=== PATIENT | male | born 1955 | race Two or more races ===

== ENCOUNTER 2016-09-19 13:00 | Inpatient (IN) | payer OTHER, MEDICAID ==
[~2016-09-19] VITALS: Ht 177.8 cm; Wt 86.2 kg
[2016-09-19] MEDS ORDERED: ONDANSETRON HCL 4 MG/2 ML VIAL IV ONE (13:30)
[2016-09-19] MEDS ORDERED: MORPHINE SULFATE 4 MG/ML SYRG IV ONE (13:30)
[2016-09-19 13:41] LABS: Basophils # (auto) 0 uL; Basophils % (auto) 0.3 % (0.0-2.0); Eosinophils # (auto) 0.3 uL; Eosinophils % (auto) 5.2 % (0.0-7.0); Hematocrit 34.3 % (41.0-53.0); Hemoglobin 11.4 g/dL (13.5-17.5); Lymphocytes # (auto) 1.1 uL; Lymphocytes % (auto) 18.6 % (10.0-50.0); Mean Corpuscular Hemoglobin 32.9 pg (28.0-32.0); Mean Corpuscular Hgb Conc. 33.2 g/dL (32.0-36.0); Mean Corpuscular Volume 99.4 fL (80.0-100.0); Mean Platelet Volume 7.4 fL (7.4-10.4); Monocytes # (auto) 0.7 uL; Monocytes % (auto) 12.6 % (0.0-12.0); Neutrophils # (auto) 3.7 uL; Neutrophils % (auto) 63.3 % (37.0-80.0); Platelet Count (auto) 196 10^3/uL (140-450); Red Cell Distribution Width 15.7 % (11.6-16.0); White Blood Cell 5.9 10^3/uL (4.4-10.8)
[2016-09-19 14:00] LABS: BUN/Creatinine Ratio 3.5; Calcium 8.1 mg/dL (8.5-10.1); Potassium 5.3 mmol/L (3.5-5.1)
[2016-09-19 14:03] LABS: Bilirubin, Total 0.6 mg/dL (0.2-1.0); Total Protein 8.8 g/dL (6.4-8.2)
[2016-09-19 14:12] LABS: B-Type Natriuretic Peptide 1163.25 pg/mL (0-100); Temperature: 21.6 C (20.0-25.0)
[2016-09-19] MEDS ORDERED: ONDANSETRON HCL 4 MG/2 ML VIAL IV PRN (21:45)
[2016-09-19] MEDS ORDERED: ACETAMINOPHEN 325 MG TAB PO PRN (21:45)
[2016-09-19] MEDS ORDERED: DEXTROSE (50%) 50ML SYRG IV PRN (21:45)
[2016-09-19] MEDS ORDERED: DOCUSATE SOD 100 MG CAP PO PRN (21:45)
[2016-09-19] MEDS ORDERED: NITROGLYCERIN 0.4 MG SL TAB SL PRN (21:45)
[2016-09-19] MEDS ORDERED: TEMAZEPAM 15 MG CAP PO PRN (21:45)
[2016-09-19] MEDS ORDERED: MORPHINE SULF INJ 2 MG/ML SYRINGE 1ML IV PRN (21:45)
[2016-09-19] MEDS ORDERED: HYDROcodone-ACET 5/325MG TAB PO PRN (21:45)
[2016-09-19] MEDS ORDERED: ATORVASTATIN 20 MG TAB PO SCH (22:00)
[2016-09-19] MEDS ORDERED: METOPROLOL TARTRATE 25 MG TAB PO SCH (22:00)
[2016-09-19] MEDS: FAMOTIDINE 20 MG TAB PO SCH (22:41)
[2016-09-19 23:44] VITALS: BP 154/96
[2016-09-20] MEDS: ACCU-CHEK COMFORT CURVE STRIP VI SCH ×3 (00:06→12:06)
[2016-09-20] MEDS: InsuLIN REG 1unit/0.01ml Soln (100units/ml) SC SCH ×3 (00:06→12:13)
[2016-09-20 02:23] VITALS: BP 154/96
[2016-09-20 05:00] VITALS: BP 134/74
[2016-09-20 06:19] LABS: Basophils # (auto) 0 uL; Basophils % (auto) 0.6 % (0.0-2.0); Eosinophils # (auto) 0.4 uL; Eosinophils % (auto) 6.6 % (0.0-7.0); Hematocrit 32.6 % (41.0-53.0); Hemoglobin 10.6 g/dL (13.5-17.5); Lymphocytes # (auto) 1.1 uL; Mean Corpuscular Hemoglobin 32.6 pg (28.0-32.0); Mean Corpuscular Hgb Conc. 32.5 g/dL (32.0-36.0); Mean Corpuscular Volume 100.5 fL (80.0-100.0); Mean Platelet Volume 7.4 fL (7.4-10.4); Monocytes # (auto) 0.9 uL; Neutrophils # (auto) 3.8 uL; Neutrophils % (auto) 60.8 % (37.0-80.0); Platelet Count (auto) 194 10^3/uL (140-450); Red Cell Distribution Width 16.1 % (11.6-16.0); White Blood Cell 6.2 10^3/uL (4.4-10.8)
[2016-09-20 06:51] LABS: Albumin 2.8 g/dL (3.4-5.0); BUN/Creatinine Ratio 4.2; Bilirubin, Total 0.6 mg/dL (0.2-1.0); Calcium 8.1 mg/dL (8.5-10.1); Potassium 4.8 mmol/L (3.5-5.1); Total Protein 7.8 g/dL (6.4-8.2)
[2016-09-20 09:00] VITALS: BP 121/72
[2016-09-20] MEDS ORDERED: LISI2.5T47 PO (09:25)
[2016-09-20] MEDS ORDERED: ATO40T PO (09:25)
[2016-09-20] MEDS ORDERED: B-COTAB10 OR (09:25)
[2016-09-20] MEDS ORDERED: TEMA15CA PO (09:25)
[2016-09-20] MEDS ORDERED: METO-159 PO (09:25)
[2016-09-20] MEDS ORDERED: ASP81EC PO (09:25)
[2016-09-20] MEDS ORDERED: FOLI1TAB6 PO (09:25)
[2016-09-20] MEDS ORDERED: OMEP20CA5 PO (09:25)
[2016-09-20] MEDS ORDERED: METO5TAB2 PO (09:25)
[2016-09-20] MEDS ORDERED: INSLANTI SC (09:26)
[2016-09-20] MEDS ORDERED: PATIENTS OWN MEDICATION (Lisinopril 1 TAB) PO SCH (10:00)
[2016-09-20] MEDS ORDERED: ENOXAPARIN SOD 30 MG/0.3 ML SYRINGE SC SCH (10:00)
[2016-09-20] MEDS ORDERED: PATIENTS OWN MEDICATION (Metoprolol Tartrate 100 MG) PO SCH ×2 (10:00)
[2016-09-20] MEDS ORDERED: ASPirin 81 mg TAB PO SCH (10:00)
[2016-09-20] MEDS ORDERED: FOLIC ACID 1 MG TAB PO SCH (10:00)
[2016-09-20] MEDS ORDERED: LISINOPRIL 5 MG TAB PO SCH (10:00)
[2016-09-20] MEDS ORDERED: METOPROLOL TARTRATE 50 MG TAB PO SCH (10:00)
[2016-09-20] MEDS ORDERED: PATIENTS OWN MEDICATION (Folic Acid 1 MG) PO SCH ×2 (10:00)
[2016-09-20] MEDS: FAMOTIDINE 20 MG TAB PO SCH (10:07)
[2016-09-20 10:34] LABS: Prothrombin Time 12.1 sec (9.37-12.3)
[2016-09-20 10:45] LABS: INR 1.17 (0.9-1.15)
[2016-09-20 12:59] VITALS: BP 123/71
[2016-09-20] MEDS ORDERED: ADENOSINE 72 MG in GIVE UN-DILUTED 0 ML IV ONE (13:30)
[2016-09-20 15:17] VITALS: BP 121/72
[2016-09-20] MEDS ORDERED: PATIENTS OWN MEDICATION (Atorvastatin Calcium (Lipitor) 1 TAB) PO SCH ×2 (18:00)
[2016-09-20] MEDS ORDERED: INSULIN DETEMIR(LEVEMIR) 1unit/0.01ml Soln (100units/ml) SC SCH (22:00)
[2016-09-20] MEDS ORDERED: ATORVASTATIN 20 MG TAB PO SCH (22:00)
[2016-09-20] MEDS ORDERED: INSULIN GLARGINE SC SCH (22:00)
== END 2016-09-20 16:15 | disposition home or self-care (01) | DRG 291 ==
LOC: EDSEX 13:00 → EDBD 13:00 → ER 13:05 → TELE 13:06 → TELE-WESTW 23:11
PROVIDERS: ADMIT Internal Medicine; ATTEND Family Medicine
PROC: 0W9G3ZZ Drainage of Peritoneal Cavity, Percutaneous Approach (ICD-10-PCS; principal; 2016-09-20)
DX: I50.31 Acute diastolic (congestive) heart failure (principal); N18.6 End stage renal disease; R18.8 Other ascites; E27.40 Unspecified adrenocortical insufficiency; I13.2 Hypertensive heart and chronic kidney disease with heart failure and with stage 5 chronic kidney disease, or end stage renal disease; E44.0 Moderate protein-calorie malnutrition; R07.89 Other chest pain; E11.22 Type 2 diabetes mellitus with diabetic chronic kidney disease; E11.65 Type 2 diabetes mellitus with hyperglycemia; E87.5 Hyperkalemia; E78.5 Hyperlipidemia, unspecified; D63.8 Anemia in other chronic diseases classified elsewhere; I25.10 Atherosclerotic heart disease of native coronary artery without angina pectoris; R14.0 Abdominal distension (gaseous); Z95.1 Presence of aortocoronary bypass graft; Z99.2 Dependence on renal dialysis; I25.2 Old myocardial infarction; Z90.49 Acquired absence of other specified parts of digestive tract; Z90.89 Acquired absence of other organs; Z68.27 Body mass index [BMI] 27.0-27.9, adult
CPT/HCPCS: 36415; 71010; 76700; 76942; 78452; 80053; 82962; 83036; 83880; 84132; 84484; 85025; 85610; 85730; 87081; 93005; 93017; 93306; 96374; 96375; J0153; J1815; J2405

== ENCOUNTER 2017-01-16 17:09 | Inpatient (IN) | payer OTHER, MEDICAID ==
[~2017-01-16] VITALS: Ht 177.8 cm; Wt 88.5 kg
[~2017-01-16 17:09] MED LIST: ASP81EC PO; ATO40T PO; B-COTAB10 OR; FOLI1TAB6 PO; INSLANTI SC; LISI2.5T47 PO; METO-159 PO; METO5TAB2 PO; OMEP20CA5 PO; TEMA15CA PO
[2017-01-16] MEDS ORDERED: LACTULOSE 20Gm/30ML SOLN PO ONE (17:30)
[2017-01-16] MEDS ORDERED: MORPHINE SULFATE 4 MG/ML SYRG IV ONE (17:30)
[2017-01-16] MEDS ORDERED: SPIRONOLACTONE 25 MG TAB PO ONE (17:30)
[2017-01-16] MEDS ORDERED: FUROSEMIDE 40 MG/4 ML VIAL IV ONE (17:30)
[2017-01-16 18:39] LABS: Basophils # (auto) 0 uL; Basophils % (auto) 0.6 % (0.0-2.0); Eosinophils # (auto) 0.2 uL; Eosinophils % (auto) 3.9 % (0.0-7.0); Hematocrit 35.2 % (41.0-53.0); Hemoglobin 11.7 g/dL (13.5-17.5); Lymphocytes # (auto) 1.2 uL; Lymphocytes % (auto) 18.3 % (10.0-50.0); Mean Corpuscular Hemoglobin 32.6 pg (28.0-32.0); Mean Corpuscular Hgb Conc. 33.2 g/dL (32.0-36.0); Mean Corpuscular Volume 98.4 fL (80.0-100.0); Mean Platelet Volume 7.3 fL (7.4-10.4); Monocytes # (auto) 0.9 uL; Monocytes % (auto) 14.1 % (0.0-12.0); Neutrophils % (auto) 63.1 % (37.0-80.0); Platelet Count (auto) 307 10^3/uL (140-450); Red Cell Distribution Width 13.6 % (11.6-16.0); White Blood Cell 6.3 10^3/uL (4.4-10.8)
[2017-01-16 18:50] LABS: INR 1.06 (0.9-1.15); Partial Thromboplastin Time 30.1 sec (22.64-33.71); Prothrombin Time 11.4 sec (9.37-12.3)
[2017-01-16 19:08] LABS: Albumin 2.5 g/dL (3.4-5.0); BUN/Creatinine Ratio 4.4; Bilirubin, Total 0.4 mg/dL (0.2-1.0); Calcium 8.4 mg/dL (8.5-10.1); Magnesium 2.3 mg/dL (1.6-2.6); Potassium 4.3 mmol/L (3.5-5.1); Total Protein 8.6 g/dL (6.4-8.2)
[2017-01-17] MEDS ORDERED: MORPHINE SULF INJ 2 MG/ML SYRINGE 1ML IV PRN ×2 (00:45)
[2017-01-17] MEDS ORDERED: HYDROcodone-ACET 5/325MG TAB PO PRN (00:45)
[2017-01-17] MEDS ORDERED: NITROGLYCERIN 0.4 MG SL TAB SL PRN (00:45)
[2017-01-17] MEDS ORDERED: DEXTROSE (50%) 50ML SYRG IV PRN (00:45)
[2017-01-17] MEDS ORDERED: ONDANSETRON HCL 4 MG/2 ML VIAL IV PRN (00:45)
[2017-01-17 03:08] VITALS: BP 141/89
[2017-01-17] MEDS: InsuLIN REG 1unit/0.01ml Soln (100units/ml) SC SCH ×3 (04:00→11:53)
[2017-01-17] MEDS: ACCU-CHEK COMFORT CURVE STRIP VI SCH ×3 (04:17→11:53)
[2017-01-17 05:00] VITALS: BP 141/89
[2017-01-17] MEDS ORDERED: SODIUM CHLOR 0.9% PF (SALINE LOCK) 10ML VIAL IV SCH (06:00)
[2017-01-17 08:00] VITALS: BP 123/86
[2017-01-17 09:21] VITALS: BP 123/86
[2017-01-17] MEDS ORDERED: PANTOPRAZOLE 40 MG TAB PO SCH (10:00)
[2017-01-17] MEDS ORDERED: METOPROLOL TARTRATE 50 MG TAB PO SCH (10:00)
[2017-01-17] MEDS ORDERED: METOCLOPRAMIDE HCL 10 MG TAB PO SCH (10:00)
[2017-01-17] MEDS ORDERED: OMEPRAZOLE 20MG/10ML ORAL SUSP PO SCH (10:00)
[2017-01-17] MEDS ORDERED: ASPirin-EC 81 mg tab PO SCH (10:00)
[2017-01-17] MEDS ORDERED: MULTIPLE VITAMIN TAB PO SCH (10:00)
[2017-01-17] MEDS ORDERED: LISINOPRIL 5 MG TAB PO SCH (10:00)
[2017-01-17 10:20] VITALS: BP 123/86
[2017-01-17] MEDS ORDERED: TEMAZEPAM 15 MG CAP PO SCH (22:00)
[2017-01-17] MEDS ORDERED: ATORVASTATIN 20 MG TAB PO SCH (22:00)
== END 2017-01-17 13:22 | disposition home or self-care (01) | DRG 432 ==
LOC: ER 17:11 → TELE 17:12 → TELE-CENTR 01-17 01:50
PROVIDERS: ADMIT Emergency Medicine; ATTEND Internal Medicine
PROC: 0W9G3ZZ Drainage of Peritoneal Cavity, Percutaneous Approach (ICD-10-PCS; principal; 2017-01-17)
PROC: BW40ZZZ Ultrasonography of Abdomen (ICD-10-PCS; 2017-01-17)
DX: K70.31 Alcoholic cirrhosis of liver with ascites (principal); N18.6 End stage renal disease; E44.0 Moderate protein-calorie malnutrition; I12.0 Hypertensive chronic kidney disease with stage 5 chronic kidney disease or end stage renal disease; J90 Pleural effusion, not elsewhere classified; E11.22 Type 2 diabetes mellitus with diabetic chronic kidney disease; E78.5 Hyperlipidemia, unspecified; F10.20 Alcohol dependence, uncomplicated; Z99.2 Dependence on renal dialysis; Z68.28 Body mass index [BMI] 28.0-28.9, adult
CPT/HCPCS: 36415; 71020; 74176; 76604; 76705; 76942; 80053; 82962; 83690; 83735; 85025; 85610; 85730; 87081; 96374; 96375

== ENCOUNTER 2017-02-20 21:09 | Inpatient (IN) | payer OTHER, MEDICAID ==
[~2017-02-20] VITALS: Ht 177.8 cm; Wt 78.5 kg
[~2017-02-20 21:09] MED LIST changes: -OMEP20CA5 PO; +OMEP20CA74 PO
[2017-02-20] MEDS ORDERED: NALBUPHINE HCL 10 MG/1ml INJECTION IV ONE (23:45)
[2017-02-21 00:27] LABS: Basophils # (auto) 0 uL; Basophils % (auto) 0.4 % (0.0-2.0); Eosinophils # (auto) 0.4 uL; Eosinophils % (auto) 4.7 % (0.0-7.0); Hematocrit 30.7 % (41.0-53.0); Hemoglobin 10.3 g/dL (13.5-17.5); Lymphocytes % (auto) 12.7 % (10.0-50.0); Mean Corpuscular Hemoglobin 32.3 pg (28.0-32.0); Mean Corpuscular Hgb Conc. 33.5 g/dL (32.0-36.0); Mean Corpuscular Volume 96.6 fL (80.0-100.0); Mean Platelet Volume 7.2 fL (7.4-10.4); Monocytes % (auto) 12.5 % (0.0-12.0); Neutrophils # (auto) 5.3 uL; Neutrophils % (auto) 69.7 % (37.0-80.0); Platelet Count (auto) 236 10^3/uL (140-450); Red Cell Distribution Width 13.2 % (11.6-16.0); White Blood Cell 7.7 10^3/uL (4.4-10.8)
[2017-02-21 00:35] LABS: INR 1.08 (0.9-1.15); Partial Thromboplastin Time 31.5 sec (22.64-33.71); Prothrombin Time 11.8 sec (9.37-12.3)
[2017-02-21 00:51] LABS: Albumin 2.3 g/dL (3.4-5.0); BUN/Creatinine Ratio 6.1; Calcium 7.8 mg/dL (8.5-10.1); Magnesium 1.9 mg/dL (1.6-2.6); Potassium 4.8 mmol/L (3.5-5.1)
[2017-02-21 00:55] LABS: Bilirubin, Total 0.5 mg/dL (0.2-1.0); Total Protein 8.2 g/dL (6.4-8.2)
[2017-02-21] MEDS ORDERED: NITROGLYCERIN 0.4 MG SL TAB SL PRN (05:30)
[2017-02-21] MEDS ORDERED: TEMAZEPAM 15 MG CAP PO PRN ×2 (05:30→20:00)
[2017-02-21] MEDS ORDERED: MORPHINE SULF INJ 2 MG/ML SYRINGE 1ML IV PRN ×2 (05:30)
[2017-02-21] MEDS ORDERED: ACETAMINOPHEN 325 MG TAB PO PRN (05:30)
[2017-02-21] MEDS: SODIUM CHLORIDE 0.9% 1,000 ML IV SCH (06:07)
[2017-02-21] MEDS ORDERED: FAMOTIDINE 20 MG TAB PO SCH (10:00)
[2017-02-21] MEDS: ENOXAPARIN SOD 30 MG/0.3 ML SYRINGE SC SCH (10:00)
[2017-02-21 10:11] VITALS: BP 140/89
[2017-02-21 11:02] VITALS: BP 140/89
[2017-02-21 12:45] VITALS: BP 140/94
[2017-02-21] MEDS: ASCORBIC ACID 500 MG TAB PO SCH ×2 (15:56→21:34)
[2017-02-21] MEDS: FAMOTIDINE 20 MG TAB PO SCH (15:56)
[2017-02-21] MEDS: ZINC SULFATE 220 MG CAP PO SCH (15:56)
[2017-02-21] MEDS: MULTIPLE VITAMIN TAB PO SCH (15:57)
[2017-02-21 16:34] VITALS: BP 142/87
[2017-02-21] MEDS ORDERED: ALBUMIN 5% 250 ML IV ONE (18:45)
[2017-02-21 20:00] VITALS: BP 136/83
[2017-02-21] MEDS ORDERED: DEXTROSE (50%) 50ML SYRG IV PRN (20:00)
[2017-02-21] MEDS ORDERED: ASPirin 81 mg TAB PO ONE (20:15)
[2017-02-21] MEDS ORDERED: LISINOPRIL 5 MG TAB PO ONE (20:15)
[2017-02-21] MEDS ORDERED: B-COMPLEX W/ C & FOLIC ACID(NEPHROVITE TAB) PO ONE (20:15)
[2017-02-21] MEDS ORDERED: FOLIC ACID 1 MG TAB PO ONE (20:15)
[2017-02-21] MEDS: ACCU-CHEK COMFORT CURVE STRIP VI SCH (21:10)
[2017-02-21] MEDS: InsuLIN REG 1unit/0.01ml Soln (100units/ml) SC SCH ×2 (21:11→22:00)
[2017-02-21] MEDS: METOCLOPRAMIDE HCL 10 MG TAB PO SCH (21:34)
[2017-02-21] MEDS ORDERED: METOPROLOL SUCCINATE XL 50 MG TAB PO SCH (22:00)
[2017-02-21 23:36] VITALS: BP 136/83
[2017-02-22] MEDS: SODIUM CHLORIDE 0.9% 1,000 ML IV SCH (01:30)
[2017-02-22 05:34] VITALS: BP 126/77
[2017-02-22] MEDS: InsuLIN REG 1unit/0.01ml Soln (100units/ml) SC SCH ×2 (06:38→11:30)
[2017-02-22] MEDS: METOCLOPRAMIDE HCL 10 MG TAB PO SCH ×3 (06:39→17:52)
[2017-02-22] MEDS: ACCU-CHEK COMFORT CURVE STRIP VI SCH ×2 (06:39→11:30)
[2017-02-22 06:47] LABS: INR 1.1 (0.9-1.15); Partial Thromboplastin Time 32.5 sec (22.64-33.71)
[2017-02-22 06:54] LABS: Calcium 7.5 mg/dL (8.5-10.1); Potassium 5.5 mmol/L (3.5-5.1)
[2017-02-22 06:55] LABS: Basophils # (auto) 0 uL; Basophils % (auto) 0.4 % (0.0-2.0); Eosinophils # (auto) 0.3 uL; Eosinophils % (auto) 3.8 % (0.0-7.0); Hematocrit 32.2 % (41.0-53.0); Hemoglobin 10.7 g/dL (13.5-17.5); Lymphocytes % (auto) 14.2 % (10.0-50.0); Mean Corpuscular Hemoglobin 32.9 pg (28.0-32.0); Mean Corpuscular Hgb Conc. 33.2 g/dL (32.0-36.0); Mean Platelet Volume 7.5 fL (7.4-10.4); Monocytes # (auto) 0.9 uL; Neutrophils # (auto) 4.5 uL; Neutrophils % (auto) 67.6 % (37.0-80.0); Platelet Count (auto) 260 10^3/uL (140-450); Red Cell Distribution Width 14.1 % (11.6-16.0); White Blood Cell 6.7 10^3/uL (4.4-10.8)
[2017-02-22 06:57] LABS: Albumin 2.5 g/dL (3.4-5.0); BUN/Creatinine Ratio 6.6; Magnesium 1.9 mg/dL (1.6-2.6)
[2017-02-22 07:07] LABS: Bilirubin, Total 0.6 mg/dL (0.2-1.0); Total Protein 7.1 g/dL (6.4-8.2)
[2017-02-22 09:04] VITALS: BP 120/76
[2017-02-22] MEDS ORDERED: LISINOPRIL 5 MG TAB PO SCH (10:00)
[2017-02-22] MEDS ORDERED: ASPirin 81 mg TAB PO SCH (10:00)
[2017-02-22] MEDS ORDERED: B-COMPLEX W/ C & FOLIC ACID(NEPHROVITE TAB) PO SCH (10:00)
[2017-02-22] MEDS ORDERED: FOLIC ACID 1 MG TAB PO SCH (10:00)
[2017-02-22] MEDS: ZINC SULFATE 220 MG CAP PO SCH (10:40)
[2017-02-22] MEDS: ASCORBIC ACID 500 MG TAB PO SCH (10:41)
[2017-02-22] MEDS: MULTIPLE VITAMIN TAB PO SCH (10:41)
[2017-02-22] MEDS: ENOXAPARIN SOD 30 MG/0.3 ML SYRINGE SC SCH (10:42)
[2017-02-22] MEDS: FAMOTIDINE 20 MG TAB PO SCH (10:42)
[2017-02-22] MEDS ORDERED: SODIUM CHL 0.9% 1000 ML BAG XX ONE (10:45)
[2017-02-22] MEDS ORDERED: EPOETIN ALFA 2,000 UNIT/1 ML VIAL IV ONE (10:45)
[2017-02-22] MEDS ORDERED: EPOETIN ALFA 3,000 UNIT/1 ML VIAL IV ONE (11:00)
[2017-02-22 14:06] VITALS: BP 126/77
[2017-02-22 17:39] VITALS: BP 107/77
[2017-02-22] MEDS ORDERED: METOPROLOL SUCCINATE XL 50 MG TAB PO SCH (22:00)
== END 2017-02-22 20:30 | disposition home or self-care (01) | DRG 432 ==
LOC: EDBD 21:09 → ER 21:13 → TELE 21:14 → EAST 02-21 09:10
PROVIDERS: ADMIT Emergency Medicine; ATTEND Internal Medicine Geriatric Medicine
PROC: 0W9G3ZZ Drainage of Peritoneal Cavity, Percutaneous Approach (ICD-10-PCS; principal; 2017-02-21)
PROC: 5A1D00Z (ICD-10-PCS; 2017-02-22)
DX: K70.31 Alcoholic cirrhosis of liver with ascites (principal); N18.6 End stage renal disease; K65.9 Peritonitis, unspecified; I13.2 Hypertensive heart and chronic kidney disease with heart failure and with stage 5 chronic kidney disease, or end stage renal disease; Z99.2 Dependence on renal dialysis; I25.2 Old myocardial infarction; I25.10 Atherosclerotic heart disease of native coronary artery without angina pectoris; K72.90 Hepatic failure, unspecified without coma; I50.9 Heart failure, unspecified; E11.22 Type 2 diabetes mellitus with diabetic chronic kidney disease; E78.5 Hyperlipidemia, unspecified; E78.00 Pure hypercholesterolemia, unspecified; D63.1 Anemia in chronic kidney disease; Z83.3 Family history of diabetes mellitus; Z95.1 Presence of aortocoronary bypass graft; Z90.49 Acquired absence of other specified parts of digestive tract; Z90.89 Acquired absence of other organs; W01.0XXA Fall on same level from slipping, tripping and stumbling without subsequent striking against object, initial encounter; Y93.89 Activity, other specified; Y92.89 Other specified places as the place of occurrence of the external cause; Y99.8 Other external cause status
CPT/HCPCS: 10022; 36415; 71010; 74176; 76942; 80053; 82150; 82962; 83690; 83735; 85025; 85610; 85730; 90935; 93005; 93971; 96374; J1642; J1815; Q4081